=== PATIENT | female | born 1930 | race Caucasian/White ===

== ENCOUNTER 2017-09-19 09:13 | Emergency (ER) | payer MEDICARE, BC ==
--- NOTE | 2017-09-19 09:49 | EDM.PDOC ---
ED HPI GENERAL MEDICAL PROBLEM - General Chief Complaint: Lower Extremity Injury/Pain Stated Complaint: BRUISE ON RIGHT KNEE Time Seen by Provider: 09/19/17 09:13 Source of Information: Reports: Patient, Family History Limitations: Reports: Physical Impairment - History of Present Illness INITIAL COMMENTS - FREE TEXT/NARRATIVE: 87 y.o.w.f came to the ed with her friend a few days after she fell at home over an object. Pt is able to walk but noticed some swelling at her right lower leg and a redness at her prox right tibie, just where she fell on to. Pt denied any other acute medical issues. 151/63 RR 18 Pulse ox 94% on RA Temp 36.8 pulse 87 Onset Date: 09/16/17 Onset Time: 08:00 Duration: Day(s):, Getting Worse, Intermittent Location: Reports: Lower Extremity, Right Quality: Reports: Ache, Burning, Dull Severity: Moderate Improves with: Reports: Rest Worsens with: Reports: Movement Context: Reports: Trauma (fell a few days ago. ) Associated Symptoms: Reports: No Other Symptoms Right Knee Pain Score (Numeric/FACES): 4 - Related Data Allergies Allergy/AdvReac Type Severity Reaction Status Date / Time atorvastatin calcium Allergy Hives Verified 09/19/17 09:21 [From Lipitor] Estrogens Allergy Rash Verified 09/19/17 09:21 niacin Allergy Rash Verified 09/19/17 09:21 rosuvastatin calcium Allergy Hives Verified 09/19/17 09:21 [From Crestor] Home Meds: Home Meds Amitriptyline [Elavil] 50 mg PO DAILY 09/19/17 [History] Atenolol/Chlorthalidone [Atenolol-Chlorthalidone 100-25] 1 tab PO DAILY [History] Cephalexin [Keflex] 500 mg PO QID #40 cap 09/19/17 [Rx] Losartan Potassium 50 mg PO DAILY 09/19/17 [History] Simvastatin [Simvastatin] 40 mg PO BEDTIME 09/19/17 [History] Past Medical History - Past Health History Medical/Surgical History: Denies Medical/Surgical History HEENT History: Reports: Macular Degeneration Cardiovascular History: Reports: CAD, High Cholesterol, Hypertension Gastrointestinal History: Reports: GERD Genitourinary History: Reports: Urinary Incontinence Musculoskeletal History: Reports: Osteoarthritis Endocrine/Metabolic History: Reports: None - Past Surgical History Cardiovascular Surgical History: Reports: Coronary Artery Bypass Musculoskeletal Surgical History: Reports: Hip Replacement Social & Family History - Tobacco Use Smoking Status *Q: Never Smoker - Recreational Drug Use Recreational Drug Use: No Review of Systems - Review of Systems Review Of Systems: Unable To Obtain ED EXAM, GENERAL - Physical Exam Exam: See Below Exam Limited By: Physical Impairment General Appearance: Alert, WD/WN, Mild Distress Eye Exam: Bilateral Eye: Normal Inspection Ears: Normal External Exam Ear Exam: Bilateral Ear: Auricle Normal Nose: Normal Inspection, Normal Mucosa Throat/Mouth: Normal Inspection, Normal Lips Head: Atraumatic, Normocephalic Neck: Normal Inspection, Supple, Non-Tender Respiratory/Chest: No Respiratory Distress, Lungs Clear Cardiovascular: Normal Peripheral Pulses, Regular Rate, Rhythm, No Edema Peripheral Pulses: 1+: Brachial (R) GI/Abdominal: Normal Bowel Sounds, Soft (Female) Exam: Deferred Rectal (Female) Exam: Deferred Back Exam: Normal Inspection, Full Range of Motion Extremities: Normal Range of Motion, Normal Capillary Refill, Leg Pain (lower, ) Neurological: Alert, Oriented, CN II-XII Intact, Normal Cognition, Abnormal Gait (lower leg pain) Psychiatric: Normal Affect, Normal Mood Skin Exam: Warm, Dry, Normal Color, Rash (right prox tibia) Lymphatic: No Adenopathy Course - Vital Signs Text/Narrative:: 87 y.o.w.f came to the ed with her friend a few days after she fell at home over an object. Pt is able to walk but noticed some swelling at her right lower leg and a redness at her prox right tibie, just where she fell on to. Pt denied any other acute medical issues. 151/63 RR 18 Pulse ox 94% on RA Temp 36.8 pulse 87 PE: WNWD W F with redness at her right prox tibia and right calf swelling Imaging: US neg for abscess and neg for DVT right leg. Impression: varicose right lower leg, Localized cellulitis right prox tibia 6X7 cm Tx: Abx, Ice, Motrin Reexam: improved Plan: D/C with instructions Last Recorded V/S: Last Vital Signs Temp 36.6 C 09/19/17 09:13 Pulse 60 09/19/17 11:40 Resp 18 09/19/17 09:13 BP 132/78 09/19/17 11:40 Pulse Ox 96 03/04/18 11:40 - Orders/Labs/Meds Orders: Active Orders 24 hr Category Date Time Status Extremity Non Vascular Rt [US] Stat Exams 09/19/17 09:46 Taken Meds: Medications Discontinued Medications Generic Name Dose Route Start Last Admin Trade Name Louie PRN Reason Stop Dose Admin Cephalexin 500 mg 09/19/17 11:11 09/19/17 11:26 Keflex PO 09/19/17 11:12 500 mg ONETIME ONE Administration Departure - Departure Time of Disposition: 11:06 Disposition: Home, Self-Care 01 Condition: Good Clinical Impression: Cellulitis of leg without foot, right Varicose veins of leg with swelling Qualifiers: Laterality: right Qualified Code(s): I83.891 - Varicose 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 - My Orders Last 24 Hours: My Active Orders 09/19/17 09:46 Extremity Non Vascular Rt [US] Stat - Assessment/Plan Last 24 Hours: My Active Orders 09/19/17 09:46 Extremity Non Vascular Rt [US] Stat
[2017-09-19] MEDS ORDERED: Cephalexin 500 MG Cap PO ONE (11:11)
[2017-09-19 11:46] VITALS: BP 132/78
--- NOTE | 2017-09-20 12:08 | US ---
INDICATION: Swelling of right calf after a fall nine days ago. DUPLEX ULTRASOUND RIGHT LOWER EXTREMITY VEINS: Utilizing 2D real time, duplex Doppler spectral analysis, and color flow imaging, examination of the right lower extremity veins revealed compressibility of the deep venous structures in the greater saphenous to the knee, including the interarterial tibial vein; however, the peroneal vein was not seen. Valvular competence was not evaluated. No evidence of deep venous thrombosis was identified. There is a free appearing collection of fluid posterior and inferior to the patella, compatible with knee joint effusion and possible hemorrhagic effusion, as well as hematoma. Followup could be obtained by ultrasound as necessary clinically. The patient was unable to cooperate adequately for valvular competence evaluation. IMPRESSION: 1. No evidence of deep venous thrombosis. 2. Fluid below and inferior to the patella, likely hemorrhagic but should be correlated clinically. MTDD
== END 2017-09-19 11:40 | disposition home or self-care (01) ==
LOC: FB.ED 09:13
DX: I83.891 Varicose veins of right lower extremity with other complications (principal); L03.115 Cellulitis of right lower limb; I10 Essential (primary) hypertension; I25.10 Atherosclerotic heart disease of native coronary artery without angina pectoris; E78.00 Pure hypercholesterolemia, unspecified; K21.9 Gastro-esophageal reflux disease without esophagitis; Z79.899 Other long term (current) drug therapy; Z88.8 Allergy status to other drugs, medicaments and biological substances
CPT/HCPCS: 76881-RT; 99284; A9270-GY